=== PATIENT | female | born 1955 | race Caucasian/White ===

== ENCOUNTER 2018-03-19 15:29 | Outpatient (CLI) | payer OTHER ==
--- NOTE | 2018-03-19 16:41 | RAD ---
TWO VIEWS CHEST: 03/19/18 HISTORY: Cough. Congestion. COMPARISON: None. FINDINGS: Atherosclerosis of the aortic knob. Normal cardiac silhouette. Pulmonary vessels and hilum are normal . Costophrenic angles are clear. Lungs are hyperinflated, without consolidation or mass. No pneumotho rax or osseous abnormalities. IMPRESSION: Atherosclerosis. No acute cardiopulmonary process. POS: [facility]
== END 2018-03-19 15:30 | disposition home or self-care (01) ==
LOC: NAV RAD 15:29
PROVIDERS: ATTEND Family Medicine
DX: R05 Cough (principal); I70.0 Atherosclerosis of aorta
CPT/HCPCS: 71046